=== PATIENT | female | born 2000 | race Caucasian/White ===

== ENCOUNTER 2019-05-03 14:41 | Emergency (ER) | payer OTHER ==
--- NOTE | 2019-05-03 15:37 | UC ---
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 - History of Current Complaint Chief Complaint: UCGeneralIllness Stated Complaint: ST Time Seen by Provider: 05/03/19 15:34 Hx Obtained From: Patient ?: No Onset/Duration: Gradual Onset Severity: Moderate Pain Intensity: 5 Cough: Nonproductive Associated Signs & Symptoms: Positive: Fever - Allergies/Home Medications Allergies/Adverse Reactions: Allergies Allergy/AdvReac Type Severity Reaction Status Date / Time No Known Allergies Allergy Verified 05/03/19 15:24 Home Medications: Home Medications Levonorgestrel (Iud) [Kyleena IUD] 17.5 mcg IU DAILY 05/03/19 [History Confirmed 05/03/19] PMH/Surg Hx/FS Hx/Imm Hx Previously Healthy: Yes - Surgical History Surgical History: None - Family History Known Family History: Positive: Non-Contributory - Social History Occupation: Student Lives: Dormitory/Roommates Alcohol Use: Rare Substance Use Type: None Smoking Status (MU): Never Smoked Tobacco Review of Systems All Other Systems Reviewed And Are Negative: Yes Constitutional: Positive: Fever ENT: Positive: Sore Throat Is Patient Immunocompromised?: No Physical Exam Triage Information Reviewed: Yes Appearance: Well-Appearing, No Pain Distress, Well-Nourished Vital Signs: Initial Vital Signs Temp 98.9 F 05/03/19 15:21 Pulse 91 05/03/19 15:21 Resp 16 05/03/19 15:21 BP 113/79 05/03/19 15:21 Pulse Ox 100 05/03/19 15:21 Vital Signs Reviewed: Yes Eyes: Positive: Conjunctiva Clear ENT: Positive: Hearing grossly normal, Pharyngeal erythema, TMs normal, Tonsillar swelling, Tonsillar exudate, Uvula midline, Other - Patient has a "full sounding" voice.. Negative: Trismus, Muffled voice, Hoarse voice Neck: Positive: Supple, Nontender, Enlarged Nodes @ - Bilateral tonsillar lymph node enlargement. Respiratory: Positive: Lungs clear, Normal breath sounds, No respiratory distress, No accessory muscle use Cardiovascular: Positive: RRR, No Murmur, Pulses Normal, Brisk Capillary Refill Abdomen Description: Positive: Nontender, No Organomegaly, Soft. Negative: CVA Tenderness (R), CVA Tenderness (L) Bowel Sounds: Positive: Present Musculoskeletal Exam: Normal Neurological Exam: Normal Psychological Exam: Normal Skin Exam: Normal Throat Pain/Nasal Course/Dx - Course Course Of Treatment: Rapid strep test was positive. I'm treating the patient with amoxicillin 875 mg by mouth twice a day 10 days. Increase fluids, change toothbrush in 24 hours. - Differential Dx/Diagnosis Provider Diagnosis: Strep pharyngitis Discharge ED - Sign-Out/Discharge Documenting (check all that apply): Patient Departure All imaging exams completed and their final reports reviewed: No Studies - Discharge Plan Condition: Fair Disposition: HOME Prescriptions: Amoxicillin PO (*) [Amoxicillin 875 MG (*)] 875 mg PO BID 10 Days #20 tab Patient Education Materials: Strep Throat (DC) Forms: *School Release Referrals: No Primary Care Phys,NOPCP [Primary Care Provider] - VANDANA GARSIA [Z.BUSINESS, APPLICATION, OTHER] - Additional Instructions: Increase fluids, rest, Tylenol every 4 hours as needed for fever or discomfort or Motrin every 8 hours for fever or discomfort. Change her toothbrush in 24 hours. Follow-up at the [facility] if no improvement in 3 or 4 days. - Billing Disposition and Condition Condition: FAIR Disposition: Home
== END 2019-05-03 15:42 | disposition home or self-care (01) ==
LOC: UCCORT 14:41
DX: J02.0 Streptococcal pharyngitis (principal)
CPT/HCPCS: 87651; 99202; G0463